=== PATIENT | female | born 1990 | race African-American/Black ===

== ENCOUNTER 2019-12-10 05:20 | Inpatient (IN) ==
--- NOTE | 2019-12-09 21:20 | HISTORY AND PHYSICAL ---
HISTORY OF PRESENT ILLNESS: Ms. Guy is a 29-year-old G2, P1-0-0-1 who presents at 39 weeks gestation for a scheduled elective primary delivery. The patient reports good movement. Denies contractions, leakage of fluid or vaginal bleeding. The patient counseled extensively on risks associated with elective delivery. Counseled on risks of infection, bleeding, injury to bowel, bladder, ureter, surrounding organs, respiratory distress syndrome and the risk associated with a repeat delivery. The patient advised and recommended vaginal delivery, having had a successful full-term vaginal delivery in the past; however, the patient declined and still requesting to proceed with a primary delivery. INITIAL LABS: All within normal limits. Blood type and screen A positive and negative antibody screen. HIV nonreactive. Hepatitis B nonreactive. Hepatitis C nonreactive. Rubella immune, RPR nonreactive. Urine drug screen negative. CURRENT MEDICATIONS: vitamins and Fioricet. ALLERGIES: No known drug allergies. PAST MEDICAL HISTORY: Anxiety, depression, migraines. PAST SURGICAL HISTORY: Foot surgery, wisdom tooth extraction. CATECHIST HISTORY: Denies STD exposure. Menarche at age 13. OBSTETRICAL HISTORY: G2, P1-0-0-1, one prior full-term vaginal delivery of 39 weeks. weight 6 pounds 1.6 ounces male . FAMILY HISTORY: Noncontributory. SOCIAL HISTORY: Denies tobacco, alcohol, or drug use. PHYSICAL EXAMINATION: VITAL SIGNS: Temperature 97.2 degrees Fahrenheit, pulse rate 87, blood pressure 125/79, weight 184 pounds, height 5 feet 6 inches tall. Body mass index 29.7 kg/m2. GENERAL: No acute distress. Alert, awake, oriented x3. CARDIOVASCULAR: Regular rate and rhythm. Positive S1, S2. RESPIRATORY: Clear to auscultation bilaterally. Negative rhonchi, or wheezing. ABDOMEN: Gravid, soft, nontender to palpation. VAGINAL EXAM: 1 cm dilated, 0% effacement, -3 station. EXTREMITIES: Negative calf tenderness, 1+ edema. LABORATORY: RPR nonreactive. Urine, chlamydia, gonorrhea screen negative. HIV nonreactive. Hemoglobin 13.5, hematocrit 40%, white blood cells 10.41, platelets 168,000, GBS positive ASSESSMENT: Mrs. Guy is a 29-year-old -0-0-1 at 39 weeks gestation who presents for a scheduled elective primary section. PLAN: 1. Admit to Labor and Delivery. 2. Obtain routine labs for delivery. 3. We will obtain continuous electronic monitoring prior to procedure and check heart rate status post spinal procedure. 4. The patient counseled on the risks, benefits, and alternatives to procedure. Again, risks not limited to infection, bleeding, injury to surrounding organs including bowel, bladder, and ureters. The patient understands risks and agrees to procedure. [facility]
[2019-12-10] MEDS ORDERED: PEPCID PO ONE (05:23)
[2019-12-10] MEDS ORDERED: REGLAN PO ONE (05:23)
[2019-12-10] MEDS ORDERED: BICITRA PO ONE (05:28)
[2019-12-10] MEDS ORDERED: KEFZOL 2 GM/D5W 2 GM/50 ML IVPB IV ONE (05:29)
[2019-12-10] MEDS: LR 1,000 ML IV SCH (06:05)
[2019-12-10 06:31] LABS: URINE SOURCE VOIDED
[2019-12-10 06:37] LABS: BASO# 0.02 X1000 (0.0-0.2); BASO% 0.2 % (0.0-0.8); BILIRUBIN URINE NEGATIVE (NEGATIVE); BLOOD URINE TRACE (NEGATIVE); COLOR YELLOW; EOS# 0.07 X1000 (0.0-0.7); EOS% 0.8 % (0.0-10.0); GLUCOSE URINE NEGATIVE (NEGATIVE); HEMATOCRIT 37.8 % (37.0-47.0); HEMOGLOBIN 12.8 g/dL (12.0-16.0); IMM GRAN# 0.03 X1000 (0.0-0.04); IMM GRAN% 0.4 % (0.0-0.5); KETONE URINE 10 mg/dL (NEGATIVE); LEUKOCYTES URINE TRACE (NEGATIVE); LYMPH# 1.33 X1000 (1.2-3.4); LYMPH% 15.6 % (20.5-51.1); MCH 29.9 PG (27-31); MCHC 33.9 g/dL (33-37); MCV 88.3 FL (81-99); MONO# 0.86 X1000 (0.11-0.59); MONO% 10.1 % (1.7-9.3); MPV 11.1 FL (7.4-10.4); NEUT# 6.19 X1000 (1.4-6.5); NEUT% 72.9 % (42.2-75.2); NITRITE URINE NEGATIVE (NEGATIVE); PLT 150 X1000 (130-400); PROTEIN URINE TRACE mg/dL (NEGATIVE); RBC 4.28 XMIL (4.2-5.4); RDW 13.7 % (11.5-14.5); SP GRAVITY URINE 1.026; TURBIDITY URINE CLEAR (CLEAR); UROBILINOGEN URINE NORMAL (NORMAL)
[2019-12-10] MEDS ORDERED: DURAMORPH ONE (06:48)
[2019-12-10] MEDS ORDERED: FENTANYL ONE (06:48)
--- NOTE | 2019-12-10 06:50 | H&P REVIEW ---
H&P Update H&P Review: H&P was reviewed and patient was examined, No change has occurred in the patient's condition
[2019-12-10] MEDS ORDERED: ROBINUL ONE (06:51)
[2019-12-10] MEDS ORDERED: NEO-SYNEPHRINE ONE (06:55)
[2019-12-10] MEDS ORDERED: SODIUM CHLORIDE 0.9% 10 ML ONE ×2 (06:55→07:27)
[2019-12-10 06:59] LABS: UR AMPHETAMINES QUAL NONE DETECTED (NONE DETECT); UR BARBITUATES QUAL PRESUMPTIVE POSITIVE (NONE DETECT); UR BENZODIAZEPIN QUAL NONE DETECTED (NONE DETECT); UR CANNABINOIDS QUAL NONE DETECTED (NONE DETECT); UR COCAINE QUAL NONE DETECTED (NONE DETECT); UR METHADONE QUAL NONE DETECTED (NONE DETECT); UR OPIATES QUAL NONE DETECTED (NONE DETECT); UR OXYCODONE QUAL NONE DETECTED (NONE DETECT); UR PCP QUAL NONE DETECTED (NONE DETECT)
[2019-12-10] MEDS ORDERED: DECADRON ONE (07:02)
[2019-12-10] MEDS ORDERED: ZOFRAN ONE (07:02)
[2019-12-10] MEDS ORDERED: PITOCIN ONE (07:18)
[2019-12-10] MEDS ORDERED: M-M-R II VACCINE SUBQ ONE (07:50)
[2019-12-10] MEDS ORDERED: ATARAX PO PRN (07:50)
[2019-12-10] MEDS ORDERED: HYDROXYZINE IM PRN (07:50)
[2019-12-10] MEDS ORDERED: PHENERGAN IM PRN (07:50)
[2019-12-10] MEDS ORDERED: PITOCIN 20 UNITS/NS 20 UNITS/1,000 ML IV.SOLN IV ONE (07:50)
[2019-12-10] MEDS ORDERED: PITOCIN IM PRN (07:50)
[2019-12-10] MEDS ORDERED: DEMEROL PO PRN ×2 (07:50)
[2019-12-10] MEDS ORDERED: DULCOLAX PR PRN (07:50)
[2019-12-10] MEDS ORDERED: AMBIEN PO PRN (07:50)
[2019-12-10] MEDS ORDERED: DEMEROL IM PRN (07:50)
[2019-12-10] MEDS ORDERED: BOOSTRIX VACCINE IM ONE (07:50)
[2019-12-10] MEDS ORDERED: MYLICON PO PRN (07:50)
--- NOTE | 2019-12-10 08:39 | OPERATIVE NOTE ---
PROCEDURE DATE: 12/10/2019 SURGEON: Wolfgang Schultz DO. LOSS PREVENTION AUDITOR: Dunia Douglas DO. PREOPERATIVE DIAGNOSIS: Ojeda intrauterine at 39 weeks gestation, desires elective delivery. POSTOPERATIVE DIAGNOSIS: Ojeda intrauterine at 39 weeks gestation, desires elective delivery. ANESTHESIA: Spinal. ESTIMATED BLOOD LOSS: 600 mL. FINDINGS: Viable male infant weighing 7 pounds 8 ounces with Apgars of 8 and 9 at 1 and 5 minutes respectively. Normal-appearing uterus, ovaries and fallopian tubes bilaterally. COMPLICATIONS: None. SURGICAL RISKS: The patient was informed of the risks and benefits of the procedure, the risks included but were not limited to bleeding, infection, injury to internal organs and possible hysterectomy. The patient expressed understanding of the risks involved. All questions were addressed and the patient consented to procedure. DESCRIPTION OF PROCEDURE: The patient was taken to the operating room where a time-out performed to confirm correct patient and correct procedure. Spinal anesthesia was adequately established and prophylactic intravenous antibiotics were administered. The patient was then placed in a dorsal supine position with a left tilt of the hips. The patient was then prepped and draped in the usual sterile fashion for a Pfannenstiel skin incision. An incision was made in the skin with a surgical scalpel and sharp dissection was carried out over subsequent layers of tissue including the fascia followed by the Bovie electrocautery for hemostasis. The fascia was incised at the midline and the fascial incision was extended bilaterally using the Bovie electrocautery. The inferior edge of the fascial incision was grasped with Allen clamps, tented up, and the underlying were dissected off bluntly and using the Bovie electrocautery. Attention was then turned to the superior edge which was grasped with Allen clamps, tented up, and the underlying rectus muscles were dissected off bluntly and using the Bovie electrocautery. The rectus muscles were then divided at the midline and the peritoneum was identified and bluntly entered at superior margin taking care to avoid the bladder. The peritoneal incision was extended superiorly and inferiorly using a Bovie electrocautery with good visualization of the bladder. The bladder blade was inserted, and the vesicouterine peritoneum was identified, grasped with smooth forceps, and cut laterally to both sides using a Metzenbaum scissors. A bladder flap was then created using blunt dissection. The bladder blade was reinserted, and a transverse incision was made in the lower uterine segment. Using a scalpel the uterine incision was extended bilaterally using blunt dissection. The amniotic sac was entered and the amniotic fluid was noted to be clear. The surgeon's hand was placed in the uterine cavity, the head was identified, elevated into the abdomen and delivered through the uterine incision with the assistance of fundal pressure. The infant was examined for nuchal cord, no nuchal cord was identified. The was delivered with traction and the assistance of fundal pressure. The oral nasal passages were bulb suctioned. On delivery the cord was clamped and cut. The was then passed off the table to waiting jockey's agent staff for further care. Cord blood was obtained for analysis and routine blood testing. The placenta was manually extracted intact with a three-vessel cord. Oxytocin was administered by IV infusion to enhance uterine contraction. The uterus was exteriorized and cleared of all clots and remaining products of conception. The uterine incision was reapproximated using 0 Monocryl absorbable suture in a running locked fashion. Good hemostasis was confirmed. The uterus was replaced into the abdomen and the pericolic gutters were cleared of all clots. The fascia was reapproximated using 0 Vicryl in a running nonlocked fashion. The skin was reapproximated using 4-0 Monocryl absorbable suture on a Raghu stitch insert in a running subcuticular fashion. All needle, sponge and instrument counts were noted to be correct x2 at the end of the procedure. The patient tolerated the procedure well and was transferred to the recovery room in stable condition.
[2019-12-10] MEDS ORDERED: ZOFRAN IV PRN ×2 (09:00)
[2019-12-10] MEDS ORDERED: ZOFRAN ODT PO PRN (09:00)
[2019-12-10] MEDS ORDERED: BENADRYL IV PRN (09:00)
[2019-12-10] MEDS ORDERED: NARCAN INJ PRN (09:00)
[2019-12-10] MEDS: TORADOL IV SCH ×3 (12:26→23:29)
[2019-12-10] MEDS: MYLICON PO SCH ×3 (12:26→20:53)
[2019-12-10] MEDS: PITOCIN 10 UNITS/NS 1,000 ML IV SCH ×2 (12:52→20:55)
[2019-12-10] MEDS: OFIRMEV 1000 MG/ISOTONIC SOLN 1,000 MG/100 ML BOTTLE IV SCH ×3 (12:54→23:31)
[2019-12-10] MEDS: PERICOLACE PO SCH (20:53)
[2019-12-10] MEDS: OXY IR PO PRN (23:14)
[2019-12-11] MEDS: LR 1,000 ML IV SCH (04:50)
[2019-12-11 06:04] LABS: BASO# 0.03 X1000 (0.0-0.2); BASO% 0.3 % (0.0-0.8); EOS# 0.07 X1000 (0.0-0.7); EOS% 0.6 % (0.0-10.0); HEMATOCRIT 36.7 % (37.0-47.0); HEMOGLOBIN 12.2 g/dL (12.0-16.0); IMM GRAN# 0.04 X1000 (0.0-0.04); IMM GRAN% 0.3 % (0.0-0.5); LYMPH% 12.8 % (20.5-51.1); MCH 29.8 PG (27-31); MCHC 33.2 g/dL (33-37); MCV 89.5 FL (81-99); MONO# 0.91 X1000 (0.11-0.59); MONO% 7.7 % (1.7-9.3); MPV 10.3 FL (7.4-10.4); NEUT% 78.3 % (42.2-75.2); PLT 140 X1000 (130-400); RDW 13.6 % (11.5-14.5); WBC 11.75 X1000 (4.8-10.8)
[2019-12-11] MEDS: TORADOL IV SCH (06:28)
[2019-12-11] MEDS ORDERED: TORADOL IV SCH (06:30)
[2019-12-11] MEDS: OFIRMEV 1000 MG/ISOTONIC SOLN 1,000 MG/100 ML BOTTLE IV SCH ×2 (06:30→08:22)
[2019-12-11] MEDS ORDERED: LR 1,000 ML IV SCH (07:50)
[2019-12-11] MEDS: MYLICON PO SCH ×5 (08:20→20:38)
[2019-12-11] MEDS: MOTRIN PO PRN ×2 (12:16→20:38)
[2019-12-11] MEDS: OXY IR PO PRN (12:16)
[2019-12-11] MEDS: PERCOCET-5 PO PRN ×2 (17:14→20:50)
[2019-12-11] MEDS: PERICOLACE PO SCH (20:38)
[2019-12-12] MEDS: PERCOCET-5 PO PRN ×2 (04:07→17:37)
[2019-12-12] MEDS: MOTRIN PO PRN ×2 (04:07→17:38)
[2019-12-12] MEDS: MYLICON PO SCH ×4 (10:01→21:03)
--- NOTE | 2019-12-12 14:05 | OB/GYN PROGRESS NOTE ---
- Subjective PO2 vssaf no cx hgb 12.8 to 12.2 ambulating [facility] diet baby in room A. PO2 primary elective c/s 1. routine care 2. encouraged ambulation 3. home in am OB Physical Exam Vital Signs - 8 hr 12/12/19 08:00 Temperature 99.1 F Pulse Rate 79 Respiratory Rate 20 Blood Pressure 120/73 O2 Sat by Pulse Oximetry 97 - CONSTITUTIONAL General Appearance: appears well Active Medications Generic Name Dose Route Start Last Admin Trade Name Freq PRN Reason Stop Dose Admin Bisacodyl 10 mg 12/10/19 07:50 Dulcolax MT PRN PRN gas unrelieved by Mylicon Hydroxyzine HCl 50 mg 12/10/19 07:50 Atarax PO Q3-4H PRN PRN Nausea Hydroxyzine HCl 50 mg 12/10/19 07:50 Hydroxyzine IM Q3-4H PRN PRN Nausea Ibuprofen 800 mg 12/10/19 07:50 12/12/19 04:07 Motrin PO 800 mg Q8H PRN PRN Administration Pain Meperidine HCl 50 mg 12/10/19 07:50 Demerol IM Q3H PRN PRN Pain Meperidine HCl 50 mg 12/10/19 07:50 Demerol PO Q4H PRN PRN Pain (1-6 on Pain Scale) Meperidine HCl 100 mg 12/10/19 07:50 Demerol PO Q4H PRN PRN Pain (7-10 on Pain Scale) Oxycodone HCl 5 mg 12/10/19 22:59 12/11/19 12:16 Oxy Ir PO 5 mg Q3H PRN PRN Administration Pain Oxycodone/Acetaminophen 1 each 12/10/19 07:50 12/12/19 04:07 Percocet-5 PO 1 each Q3-4H PRN PRN Administration Pain (1-6 on Pain Scale) Oxytocin 20 unit 12/10/19 07:50 Pitocin IM PRN PRN Severe bleeding Promethazine HCl 25 mg 12/10/19 07:50 Phenergan IM Q3H PRN PRN Pain Senna/Docusate Sodium 1 each 12/10/19 21:00 12/11/19 20:38 Pericolace PO 1 each QHS RICARDO Administration Simethicone 80 mg 12/10/19 09:00 12/12/19 12:36 Mylicon PO 80 mg PC + HS RICARDO Administration Simethicone 80 mg 12/10/19 07:50 Mylicon PO PRN PRN GAS Zolpidem Tartrate 10 mg 12/10/19 07:50 Ambien PO HS PRN PRN Sleep
[2019-12-12] MEDS: PERICOLACE PO SCH (21:03)
--- NOTE | 2019-12-13 07:16 | OB/GYN PROGRESS NOTE ---
- Subjective 29 yo POD#3 s/p 1LTCS Patient seen and examined. Pain controlled. She is tolerating a regular diet, denies nausea/vomiting. She is ambulating and voiding without difficulty. She is passing flatus. She has not had a BM yet. She denies any fever/chills. She notes minimal lochia. Baby is doing well. She is bottle feeding. She plans for OCPs for PP contraception. She desires d/c home today. OB Physical Exam Vital Signs - 8 hr 12/13/19 00:00 12/13/19 04:00 Temperature 98.2 F Pulse Rate 66 Respiratory Rate 18 18 Blood Pressure 133/85 O2 Sat by Pulse Oximetry 100 - CONSTITUTIONAL General Appearance: appears well, alert, no apparent distress - HEAD, EARS, NOSE, MOUTH & THROAT HENMT: normocephalic/atraumatic - RESPIRATORY Respiratory: lungs clear, normal breath sounds, no respiratory distress - CARDIOVASCULAR Cardiovascular: regular rate, rhythm, no edema - GASTROINTESTINAL (ABDOMEN) Abdominal Exam: normal bowel sounds, non tender, soft, other (incision c/d/i with dermabond) - MUSCULOSKELETAL Extremity: normal range of motion, non-tender - NEUROLOGIC Neurologic: grossly normal - PSYCHIATRIC Psych/Mental Status: normal mood/affect Active Medications Generic Name Dose Route Start Last Admin Trade Name Freq PRN Reason Stop Dose Admin Bisacodyl 10 mg 12/10/19 07:50 Dulcolax UT PRN PRN gas unrelieved by Mylicon Hydroxyzine HCl 50 mg 12/10/19 07:50 Atarax PO Q3-4H PRN PRN Nausea Hydroxyzine HCl 50 mg 12/10/19 07:50 Hydroxyzine IM Q3-4H PRN PRN Nausea Ibuprofen 800 mg 12/10/19 07:50 12/12/19 17:38 Motrin PO 800 mg Q8H PRN PRN Administration Pain Meperidine HCl 50 mg 12/10/19 07:50 Demerol IM Q3H PRN PRN Pain Meperidine HCl 50 mg 12/10/19 07:50 Demerol PO Q4H PRN PRN Pain (1-6 on Pain Scale) Meperidine HCl 100 mg 12/10/19 07:50 Demerol PO Q4H PRN PRN Pain (7-10 on Pain Scale) Oxycodone HCl 5 mg 04/06/20 22:59 12/11/19 12:16 Oxy Ir PO 5 mg Q3H PRN PRN Administration Pain Oxycodone/Acetaminophen 1 each 12/10/19 07:50 12/12/19 17:37 Percocet-5 PO 1 each Q3-4H PRN PRN Administration Pain (1-6 on Pain Scale) Oxytocin 20 unit 12/10/19 07:50 Pitocin IM PRN PRN Severe bleeding Promethazine HCl 25 mg 12/10/19 07:50 Phenergan IM Q3H PRN PRN Pain Senna/Docusate Sodium 1 each 12/10/19 21:00 12/12/19 21:03 Pericolace PO 1 each QHS RICARDO Administration Simethicone 80 mg 12/10/19 09:00 12/12/19 21:03 Mylicon PO 80 mg PC + HS RICARDO Administration Simethicone 80 mg 12/10/19 07:50 Mylicon PO PRN PRN GAS Zolpidem Tartrate 10 mg 12/10/19 07:50 Ambien PO HS PRN PRN Sleep OB Assessment & Plan (1) S/P Status: Acute Plan: 29 yo POD#3 s/p 1LTCS 1. HD stable, afebrile 2. Encourage ambulation 3. Routine PP care 4. D/c home today
[2019-12-13 07:49] VITALS: BP 134/79
--- NOTE | 2019-12-13 08:10 | DISCHARGE SUMMARY ---
ADMISSION DATE: 12/10/2019 DISCHARGE DATE: 12/13/2019 ADMITTING PHYSICIAN: Wolfgang Schultz DO CONDITION ON DISCHARGE: Stable. FINAL DIAGNOSIS: A 29-year-old G2, P2, 0-0-2 postop day #3 status post primary low transverse section. HOSPITAL COURSE: The patient was admitted on 12/09 for a scheduled primary low-transverse section at maternal request. The procedure was uncomplicated, and she had a routine course. On postop day #3, she was deemed stable for discharge. She was ambulating and voiding without difficulty. She is tolerating regular diet without nausea or vomiting. She is passing flatus and notes minimal lochia. She is bottle-feeding and plans for oral contraceptives for contraception. Incision appears clean, dry, and intact with no signs of infection. She will follow up in [address] Schultz for an incision check. DISCHARGE MEDICATIONS: 1. Motrin 800 mg p.o. q.8 hours p.r.n. pain. 2. Percocet 5/325 mg p.o. q.4 hours p.r.n. pain. Dispense #18. 3. Colace 100 mg p.o. at bedtime p.r.n. constipation. FOLLOW-UP INSTRUCTIONS: Patient instructed to notify doctor with temperature greater than 100.4 degrees Fahrenheit, vaginal bleeding greater than 1 pad an hour, foul-smelling discharge, or severe abdominal pain. She is instructed to place nothing in her vagina for 6 weeks. No tampons/douching/sex. FOLLOWUP APPOINTMENTS: Patient instructed to follow up with Dr. Schultz in 1 week for an incision check.
[2019-12-13] MEDS: MOTRIN PO PRN (08:56)
[2019-12-13] MEDS: PERCOCET-5 PO PRN (08:56)
[2019-12-13] MEDS: MYLICON PO SCH (08:56)
== END 2019-12-13 10:10 | disposition home or self-care (01) | DRG 788 ==
LOC: LD 05:20
PROVIDERS: ADMIT Obstetrics & Gynecology; ATTEND Obstetrics & Gynecology